=== PATIENT | male | born 1990 | race Caucasian/White ===

== ENCOUNTER → 2016-12-01 | Outpatient (CLI) | payer MEDICAID ==
[2016-12-01 12:19] LABS: ABSOLUTE MONOCYTES (AUTO) 0.5 10^3/uL (0.1-1.4); EOSINOPHILS % (AUTO) 0.9 % (0-6); HEMATOCRIT 48.3 % (37.9-51.0); HEMOGLOBIN 15.8 g/dL (13.5-17.0); HGB HCT DIFFERENCE -0.9; LYMPHOCYTES % (AUTO) 21.8 % (13-45); MEAN CORPUSCULAR HEMOGLOBIN 33.2 pg (27.0-33.4); MEAN CORPUSCULAR HGB CONC 32.6 g/dL (32.0-36.0); MEAN CORPUSCULAR VOLUME 102 fl (80-97); MONOCYTES % (AUTO) 11.1 % (3-13); RED BLOOD COUNT 4.76 10^6/uL (4.35-5.55); RED CELL DISTRIBUTION WIDTH 13.5 % (11.5-14.0); SEGMENTED NEUTROPHILS % (AUTO) 65.2 % (42-78); WHITE BLOOD COUNT 4.6 10^3/uL (4.0-10.5)
[2016-12-01 12:36] LABS: ALANINE AMINOTRANSFERASE 41 U/L (21-72); ALBUMIN 4.5 g/dL (3.5-5.0); ALKALINE PHOSPHATASE 91 U/L (38-126); ANION GAP 14 (5-19); ASPARTATE AMINO TRANSFERASE 30 U/L (17-59); BILIRUBIN,DIRECT 0.3 mg/dL (0.0-0.4); BILIRUBIN,TOTAL 0.9 mg/dL (0.2-1.3); BLOOD UREA NITROGEN 19 mg/dL (7-20); CALCIUM 9.1 mg/dL (8.4-10.2); CARBON DIOXIDE 28 mmol/L (22-30); CHLORIDE 102 mmol/L (98-107); CHOLESTEROL 202.34 mg/dL (0-200); CREATININE RESULT 0.85 mg/dL (0.52-1.25); Direct HDL 43 mg/dL (>40); GLUCOSE 85 mg/dL (75-110); POTASSIUM 4.5 mmol/L (3.6-5.0); SODIUM 144.1 mmol/L (137-145); TOTAL PROTEIN 8.2 g/dL (6.3-8.2); TRIGLYCERIDES 65 mg/dL (<150)
[2016-12-01 12:47] LABS: DIRECT LDL 148 mg/dL (<100)
== END ==
LOC: CAR 10:31
PROVIDERS: ATTEND Family Medicine
DX: K90.0 Celiac disease (principal); L30.9 Dermatitis, unspecified; Z79.899 Other long term (current) drug therapy
CPT/HCPCS: 80053; 80061; 82306; 84443; 85025

== ENCOUNTER → 2017-01-14 | Outpatient (CLI) | payer MEDICAID ==
--- NOTE | 2017-01-14 15:39 | [facility] ---
[facility] NAME: MARGO THORPE [facility] REFERENCE #: [id number] : 1990 DATE OF VISIT: 01/14/2017 PRIMARY CARE: Dr. Liz Yin CHIEF COMPLAINT: Down syndrome with mitral valve disorder. Patient returns for his two-year followup. 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 He has Down syndrome and autism. He lives at [facility]. He is here with his two [employer] workers today. They state that he is doing well. He is always happy. He has no unusual respiratory or cardiac distress. He does not have syncope or seizures. MEDICATIONS: Oralia, vitamin D, omega 3 fatty acids, and Benofiber. ALLERGIES TO MEDICATION: PENICILLIN. SOCIAL HISTORY: Lives at [facility]. 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 REVIEW OF SYSTEMS: Our 12-point review was negative for any symptoms. He does see the dentist at least twice a year and gets good checkups. PHYSICAL EXAMINATION: Weight 121 pounds, height 61 inches, oximetry 100%, blood pressure 106/63, heart rate 65. General exam is a happy and reasonably cooperative boy with autism and Down syndrome. He is fit appearing and not obese. Color and perfusion excellent. Lungs clear bilateral. Precordial activity normal. Cardiac auscultation reveals a grade 2-3 holosystolic mitral regurgitation murmur with a quiet second heart sound. No gallop. No diastolic murmur. Abdomen shows scars from his surgery, but is nontender. Pulses are brisk. Twelve-lead electrocardiogram is normal with all normal intervals. Echocardiogram performed. 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 HE DOES NOT HAVE A TRUE AV CANAL. HIS LEFT VENTRICLE AND LEFT ATRIUM ARE NORMAL SIZE WITH NORMAL PERFORMANCE. He does not need antibiotic prophylaxis for dental cleanings. He does not need cardiac medications. He does not require cardiac surgery at this time. Recommend a two-year cardiac echo and visit. LUIGI LAMB MD [id number] PHY#: [id number] ID: [id number] JOB#: [id number] ACCT: [id number] cc:MD LIZ CLARK M.D. >
--- NOTE | 2017-01-14 16:14 | NONINVASIVE CARDIOLOGY REPORT ---
ECHOCARDIOGRAPHY REPORT PATIENT NAME: MARGO THORPE ROOM#: DATE OF SERVICE: 01/14/2017 : 1990 PRIMARY CARE: Dr. Liz Yin [facility] REFERENCE #: [id number] ORDER #: [id number] INDICATION: Follow up of mitral regurgitation. WEIGHT: 121 pounds HEIGHT: 61 inches REPORT There is a cleft in the mitral valve anterior leaflet causing mild regurgitation but no left atrial enlargement. Left ventricular size and performance are normal. LV wall thickness and septal thickness are normal. Aortic root normal. Aortic valve trileaflet and normal. No endocardial cushion defect. Atrial septum appears intact. Aortic arch is normal. Doppler velocities are normal through the four cardiac valves. Tricuspid regurgitant velocity indicates no pulmonary hypertension. Descending aorta velocity normal. Color mapping shows normal TR, normal IN, and the mild mitral regurgitation. CARDIAC DIMENSIONS: LVED 4.7 cm, LVES 3.2 cm, LV wall 0.8 cm, septum 0.9 cm, aorta 2.8 cm, right ventricle 1.5 cm, left atrium 3.3 cm. DOPPLER VELOCITIES: Aorta 1.1 m/sec, pulmonary 0.7 m/sec, tricuspid 0.5 m/sec, mitral 1.2 m/sec, tricuspid regurgitation 2.2 m/sec, descending aorta 1.1 m/sec. FINAL IMPRESSION: MILD MITRAL VALVE REGURGITATION THROUGH A CLEFT IN THE ANTERIOR MITRAL LEAFLET WITHOUT CHANGE AND WITHOUT LEFT ATRIAL OR LEFT VENTRICULAR ENLARGEMENT. INTERPRETING PHYSICIAN: LUIGI LAMB MD /: [id number] TT: [id number] ID: [id number] /: [id number] TD: 1305 JOB: [id number] cc:MD LIZ CLARK M.D. >
--- NOTE | 2017-01-14 23:58 | EKG REPORT ---
SEVERITY:- NORMAL ECG - SINUS RHYTHM : Confirmed by: Jarocho Hale 14-Jan-2017 23:57:20
== END ==
LOC: PC 10:47
PROVIDERS: ATTEND Pediatrics Pediatric Cardiology
DX: I34.0 Nonrheumatic mitral (valve) insufficiency (principal); Q90.9 Down syndrome, unspecified
CPT/HCPCS: 93005; 93010; 93303; 93320; 93325; 94760

== ENCOUNTER → 2019-02-02 | Outpatient (CLI) | payer MEDICAID ==
--- NOTE | 2019-02-03 22:20 | PEDIATRIC CLINIC REPORT ---
[facility]iology Clinic Pediatric Cardiology Clinic Note: [facility] Date: Date of visit February 02, 2019 Reason for Visit/ Chief Complaint: Follow-up of mitral valve regurgitation associated with Down syndrome Requesting Source: PCP: Physicians at [facility] in [place]; Dr Liz Yin Shade Matcher: Moisés Garcia MD, [facility] [employer] Pediatric Cardiology History of Present Illness and Cardiology History: He is at our pediatric cardiology outreach clinic at [facility] with to the [facility] workers. I last saw him 2 years ago for his mild mitral valve regurgitation associated with a cleft mitral valve. He has Down syndrome. He is doing well with his general physical health. His only behavioral medications Intuniv 0.5 mg daily. He is not on cardiac medications. He does not require an asthma inhaler and simply has medication for seasonal allergies. No cardiovascular symptoms. No chest pain or palpitations. No respiratory complaints such as wheezing or apparent dyspnea. Denies exercise intolerance. The medications list was reviewed with the patient. Allergies were reviewed with the patient. Allergies Reported: Penicillin allergy Medical History: Down syndrome,Celiac disease, eczema, history of Hirschsprung disease, Surgical History: Surgery for Hirschsprung's disease intussusception with partial resection of small bowel in 1998. Tympanostomy tubes at age 2. Inguinal herniorrhaphy in 2019. Social History: He lives at [facility] Review of Systems General: Denies fevers, unusual sweats, anorexia, unusual fatigue, abnormal weight loss, developmental delays. Eyes: Denies vision change or problems Ears/Nose/Throat:Denies decreased hearing, or acute symptoms Cardiovascular: see HPI Respiratory:Denies cough, dyspnea, wheezing, snoring. Gastrointestinal:Denies nausea, vomiting, diarrhea, constipation, abdominal pain. 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 Musculoskeletal: Denies back pain, joint pain, or unusual joint laxity. Skin: Denies rash Neurologic: Denies seizures, syncope, or frequent headache. Psychiatric: Denies complaints. Endocrine: Denies symptoms or unusual weight change. Heme/Lymphatic: Denies abnormal bruising, bleeding, enlarged lymph nodes. Physical Exam Vital Signs: Oximetry 100% Weight: 131 pounds height: 62 inches Pulse rate: 75 respirations: 20 Blood Pressure: 110/70 Growth: appropriate, short stature of Down syndrome. General appearance: alert, well nourished, well hydrated, no acute distress Head: normocephalic with facial features of trisomy 21. Eyes: conjunctivae and lids normal Teeth/Gums/Palate: dentition and gums normal, no lesions Oral mucosa: no pallor or cyanosis Neck veins: no JVD Thyroid: no enlargement Lymphatic: no cervical adenopathy Respiratory Respiratory effort: comfortable breathing Auscultation: no rales, rhonchi, or wheezes Cardiovascular Palpation: no thrill or palpable murmurs, no displacement of PMI Auscultation: S1 normal, S2 normal intensity and splitting, no abnormal murmur, no gallop Abdominal aorta: no enlargement or bruits Carotid arteries: no carotid bruits Femoral arteries: normal femoral pulses with no brachio-femoral delay Pedal pulses:pulses 2+, symmetric Periph. circulation: warm and pink, no cyanosis Abdomen: soft, non-tender, no masses, bowel sounds normal Liver and spleen: no enlargement Back: no significant deformity Skin Inspection: no abnormal lesions Neurologic Normal coordination and tone Gait and station: normal Muscle strength/tone: normal tone and strength Mental Status Exam Orientation: oriented to time, place, and person Mood and affect:no depression, anxiety, or agitation He has features of autism but he is really quite cooperative to simple commands. Labs and Tests ordered echocardiogram Assessment and Plan: Mild mitral valve regurgitation related to cleft mitral valve which could represent a very mild form of AV septal defect. There is no atrial or ventricular defect. Cardiac function is normal. Endocarditis prophylaxis indicated? Not necessary we did discuss the importance of his yearly dental checkups. Special restrictions on activity? Not necessary from cardiac standpoint. 2 years Follow up: 2 years Information sheets or diagram of condition given. I am grateful for this consultation. Moisés Garcia M.D.
--- NOTE | 2019-02-05 10:34 | Pediatric Echocardiogram ---
Peds Echocardiography Report [facility] at [facility] Referring Physician: PCP: Liz Yin MD Reading MD: Dr Moisés Garcia Follow-up study Indications: Down syndrome with cleft mitral valve Study Date: February 02, 2019 Performed by: WILLIAN [facility]X #[id number] Weight 131 pounds Height 62 inches Two Dimensional Data (cm) LV end diastolic dimension: 5.04 LV end systolic dimension: 3.29 LV posterior wall thickness diastolic: 0.84 Interventricular Septum diastolic thickness: 0.73 RV end diastolic dimension: 1.43 Aortic sinuses diameter: 2.7 Left atrial diameter long axis: 3.5 LV Ejection fraction (Teichholz method): 64% Doppler Velocity Data (M/sec) Aortic systolic: 1.1 Pulmonic systolic: 0.7 Mitral diastolic: 1.0 Tricuspid diastolic: 0.5 Additional Doppler data: Descending aorta: 1.0 COLOR FLOW MAPPING: shows mild mitral valve regurgitation which is 4 mm wide at the cleft in the mitral valve. No abnormal shunting. No abnormal turbulence through any of the valves antegrade. Because the patient was somewhat uncooperative for twelve-lead EKG and EKG patches after the echo was done I was able to apply the EKG patches and run a hardcopy off of the echo machine for measuring EKG intervals which showed normal NV interval of 160 ms a normal width of QRS complex and a QT interval of 390 ms heart rate of 66 or QTC 415 ms all of which are normal Comments: Pulmonary and systemic venous returns are normal. Atrial situs solitus with normal atrioventricular and ventriculoarterial relationships. Normal dimensional data. Normal ventricular ejection performances. Intact atrial septum. Intact ventricular septum. Mild cleft in the mitral valve anterior leaflet resulting in mild regurgitation 4 mm wide by color mapping at the valve leaflets. Normal valvar morphology and transvalvar velocities, with a normal LV filling pattern. No pathologic valvar incompetence. The coronary arteries appear to be normal in terms of origin, distribution, and caliber. Normal left sided aortic arch. No PDA No abnormal pericardial fluid collection Impression: Mild cleft in the mitral valve anterior leaflet resulting in mild regurgitation 4 mm wide by color mapping at the valve leaflets. No abnormal left ventricular enlargement. Normal left ventricular systolic performance. MTDD
== END ==
LOC: PC 10:14
PROVIDERS: ATTEND Pediatrics Pediatric Cardiology
DX: Z51.89 Encounter for other specified aftercare (principal); I34.0 Nonrheumatic mitral (valve) insufficiency; Q90.9 Down syndrome, unspecified
CPT/HCPCS: 93304; 93321; 93325; 94760